=== PATIENT | female | born 1965 | race Caucasian/White ===

== ENCOUNTER → 2021-01-31 | Outpatient (CLI) | payer BC ==
--- NOTE | 2021-01-31 17:13 | Diagnostic Imaging Report ---
INDICATION: Knee pain. COMPARISON: None. FINDINGS: Multiple radiographic views of the right knee joint demonstrate no acute fracture or dislocation. No focal lytic or blastic lesion is seen. There is however apparent 4 mm calcified intra-articular loose body within the medial tibial femoral compartment. Note is also made of large suprapatellar joint effusion. No unexpected radiopaque foreign bodies are seen. IMPRESSION: 1. No evidence of acute fracture or dislocation of the right knee. 2. Large suprapatellar joint effusion. 3. Probable calcified intra-articular loose body within the medial compartment. Dictated by: Dictated on workstation # [id number]
== END ==
LOC: RAD FS 15:00
PROVIDERS: ATTEND Nurse Practitioner
DX: M25.561 Pain in right knee (principal); M25.461 Effusion, right knee
CPT/HCPCS: 73562

== ENCOUNTER 2021-02-24 22:18 | Emergency (ER) | payer BC ==
[2021-02-24] MEDS ORDERED: FAMOTIDINE 20MG/2ML IV (PEPCID) IV STA (22:23)
[2021-02-24] MEDS ORDERED: LACTATED RINGERS 1,000 ML IV STA (22:23)
--- NOTE | 2021-02-24 22:23 | ED GI ---
General Stated Complaint: NAUSEA/VOMITING History of Present Illness Date Seen by Provider: February 24, 2021 Time Seen by Provider: 22:22 Initial Comments Patient with nausea vomiting and diarrhea. Patient reports that started approximate hour right prior to arrival. She reports that it is "coming out both ends" patient reports that she had her gallbladder out on the fifth of this month at [facility] by Dr. Boland. She reports that she has had 1 prior episode similar to this about 10 days ago. She reports that they barbecued hamburgers on the grill for supper. However she is the only 1 having any symptoms in the household. Patient was significantly diaphoretic due to the vomiting and diarrhea. She has some mild abdominal tenderness from the vomiting but no actual pain. Allergies and Home Medications Allergies Coded Allergies: [place] Known Allergies (Verified Allergy, Unknown, 02/10/07) Physical Exam Vital Signs Vital Signs - First Documented 02/24/21 22:20 Temp 36.6 Pulse 77 Resp 20 B/P (MAP) 142/72 (95) Pulse Ox 99 O2 Delivery Room Air Capillary Refill : Height/Weight/BMI Height: '" Weight: lbs. oz. kg; BMI Method: Progress/Results/Core Measures Results/Orders Lab Results Laboratory Tests Test 02/24/21 22:30 02/24/21 22:59 Range/Units White Blood Count 22.1 H 4.3-11.0 10^3/uL Red Blood Count 5.32 4.35-5.85 10^6/uL Hemoglobin 16.0 11.5-16.0 G/DL Hematocrit 46 35-52 % Mean Corpuscular Volume 87 80-99 FL Mean Corpuscular Hemoglobin 30 25-34 PG Mean Corpuscular Hemoglobin Concent 35 32-36 G/DL Red Cell Distribution Width 12.8 10.0-14.5 % Platelet Count 461 H 130-400 10^3/uL Mean Platelet Volume 9.4 7.4-10.4 FL Immature Granulocyte % (Auto) 1 % Neutrophils (%) (Auto) 74 42-75 % Lymphocytes (%) (Auto) 21 12-44 % Monocytes (%) (Auto) 3 0-12 % Eosinophils (%) (Auto) 1 0-10 % Basophils (%) (Auto) 0 0-10 % Neutrophils # (Auto) 16.4 H 1.8-7.8 X 10^3 Lymphocytes # (Auto) 4.6 H 1.0-4.0 X 10^3 Monocytes # (Auto) 0.7 0.0-1.0 X 10^3 Eosinophils # (Auto) 0.2 0.0-0.3 10^3/uL Basophils # (Auto) 0.1 0.0-0.1 10^3/uL Immature Granulocyte # (Auto) 0.1 0.0-0.1 10^3/uL Neutrophils % (Manual) 81 % Lymphocytes % (Manual) 15 % Monocytes % (Manual) 4 % Toxic Granulation 4+ Sodium Level 139 135-145 MMOL/L Potassium Level 3.8 3.6-5.0 MMOL/L Chloride Level 102 98-107 MMOL/L Carbon Dioxide Level 17 L 21-32 MMOL/L Anion Gap 20 H 5-14 MMOL/L Blood Urea Nitrogen 20 H 7-18 MG/DL Creatinine 0.93 0.60-1.30 MG/DL Estimat Glomerular Filtration Rate > 60 BUN/Creatinine Ratio 22 Glucose Level 252 H 70-105 MG/DL Calcium Level 10.4 H 8.5-10.1 MG/DL Corrected Calcium 8.5-10.1 MG/DL Total Bilirubin 0.7 0.1-1.0 MG/DL Aspartate Amino Transf (AST/SGOT) 43 H 5-34 U/L Alanine Aminotransferase (ALT/SGPT) 40 0-55 U/L Alkaline Phosphatase 118 40-136 U/L Total Protein 8.9 H 6.4-8.2 GM/DL Albumin 4.9 H 3.2-4.5 GM/DL Lipase 35 8-78 U/L Smear Scan LARGE PLTS Glucometer 130 H 70-110 MG/DL My Orders Orders - JOLLY,KARYNA L DO Ondansetron Injection (Zofran Injectio (02/24/21 22:30) Lactated Ringers (Lr 1000 Ml Iv Solution (02/24/21 22:23) Famotidine Injection (Pepcid Injection) (02/24/21 22:23) Ed Iv/Invasive Line Start (02/24/21 22:23) Cbc With Automated Diff (02/24/21 22:23) Comprehensive Metabolic Panel (02/24/21 22:23) Lipase (02/24/21 22:23) Ua Culture If Indicated (02/24/21 22:23) Accucheck Stat ONCE (02/24/21 22:23) Ekg Tracing (02/24/21 22:23) Monitor-Rhythm Ecg Trace Only (02/24/21 22:23) Acute Abd Series (02/24/21 22:23) Manual Differential (02/24/21 22:30) Ct Abdomen/Pelvis W (02/24/21 23:05) Iohexol Injection (Omnipaque 350 Mg/Ml 1 (02/24/21 23:15) Received Contrast (Hold Metformin- Contr (02/24/21 23:15) Sodium Chloride Flush (Catheter Flush Sy (02/24/21 23:15) Ns (Ivpb) (Sodium Chloride 0.9% Ivpb Bag (02/24/21 23:15) Medications Given in ED Current Medications Medications Dose Ordered Sig/Elke Route Start Time Stop Time Status Last Admin Dose Admin Iohexol 100 ml ONCE ONCE IV 02/24/21 23:15 02/24/21 23:16 DC 02/24/21 23:37 100 ML Ondansetron HCl 4 mg ONCE ONCE IVP 02/24/21 22:30 02/24/21 22:31 DC 02/24/21 22:29 4 MG Sodium Chloride 10 ml NEEDED PRN IV 02/24/21 23:15 02/24/21 23:38 10 ML Sodium Chloride 100 ml ONCE ONCE IV 02/24/21 23:15 02/24/21 23:16 DC 02/24/21 23:38 80 ML Vital Signs/I&O 02/24/21 22:20 Temp 36.6 Pulse 77 Resp 20 B/P (MAP) 142/72 (95) Pulse Ox 99 O2 Delivery Room Air Progress Progress Note : Progress Note Patient felt slightly better following treatment with IV fluids, Zofran. No further episodes of vomiting or diarrhea while here in the ER. Patient's CAT scan showed a diarrheal illness with some fluid-filled small and large bowel loops. No acute findings. Discussed with patient that is likely of virus versus reaction to her recent gallbladder surgery. That she will have to run it s course. Patient has Zofran already at home. Patient is discharged home in stable condition. Patient's blood pressure was slightly elevated told her she can take her blood pressure medication tonight or she can wait till the morning. Departure Impression Primary Impression: Gastroenteritis Disposition: 01 HOME, SELF-CARE Condition: Stable Departure-Patient Inst. Referrals: JAMESON MONROE MD (PCP/Family) Primary Care Physician Patient Instructions: [id number] Add. Discharge Instructions: Clear liquid diet, advance as tolerated KARYNA JOLLY DO February 24, 2021 22:23
[2021-02-24] MEDS ORDERED: ONDANSETRON 4 MG/2 ML (SDV) Z0FRAN IVP ONE (22:30)
[2021-02-24 22:36] LABS: HEMATOCRIT 46 % (35-52); MEAN CORPUSCULAR HEMOGLOBIN 30 PG (25-34); MEAN CORPUSCULAR HGB CONC 35 G/DL (32-36); MEAN CORPUSCULAR VOLUME 87 FL (80-99); WHITE BLOOD COUNT 22.1 10^3/uL (4.3-11.0)
[2021-02-24 22:37] LABS: BASOPHILS # (AUTO) 0.1 10^3/uL (0.0-0.1); BASOPHILS % (AUTO) 0 % (0-10); EOSINOPHILS # (AUTO) 0.2 10^3/uL (0.0-0.3); EOSINOPHILS % (AUTO) 1 % (0-10); LYMPHOCYTES # (AUTO) 4.6 X 10^3 (1.0-4.0); LYMPHOCYTES % (AUTO) 21 % (12-44); MEAN PLATELET VOLUME 9.4 FL (7.4-10.4); MONOCYTES # (AUTO) 0.7 X 10^3 (0.0-1.0); MONOCYTES % (AUTO) 3 % (0-12); NEUTROPHILS # (AUTO) 16.4 X 10^3 (1.8-7.8); NEUTROPHILS % (AUTO) 74 % (42-75); PLATELET COUNT 461 10^3/uL (130-400)
[2021-02-24 22:54] LABS: BUN/CREATININE RATIO 22; CARBON DIOXIDE 17 MMOL/L (21-32); CHLORIDE 102 MMOL/L (98-107); CREATININE SERUM 0.93 MG/DL (0.60-1.30); GFR ESTIMATED > 60; LYMPHOCYTES % (MANUAL) 15 %; MONOCYTES % (MANUAL) 4 %; NEUTROPHILS % (MANUAL) 81 %; POTASSIUM 3.8 MMOL/L (3.6-5.0); SMEAR SCAN COMMENT LARGE PLTS; SODIUM 139 MMOL/L (135-145); TOXIC GRANULATION/VACUOLAZATIO 4+
[2021-02-24 22:55] LABS: ALANINE AMINOTRANSFERASE 40 U/L (0-55); ALBUMIN 4.9 GM/DL (3.2-4.5); ALKALINE PHOSPHATASE 118 U/L (40-136); BILIRUBIN,TOTAL 0.7 MG/DL (0.1-1.0); CALCIUM 10.4 MG/DL (8.5-10.1); GLUCOSE 252 MG/DL (70-105); LIPASE 35 U/L (8-78); TOTAL PROTEIN 8.9 GM/DL (6.4-8.2)
[2021-02-24] MEDS ORDERED: CATHETER FLUSH 10 ML SYR IV PRN (23:15)
[2021-02-24] MEDS ORDERED: HOLD METFORMIN - RECEIVED CONTRAST 20 ML VIAL IV SCH (23:15)
[2021-02-24] MEDS ORDERED: NS 100 ML (IVPB) BAG IV ONE (23:15)
[2021-02-24] MEDS ORDERED: IOHEXOL 350 MG/ML 100 ML (OMNIPAQUE 350) VIAL IV ONE (23:15)
[2021-02-25 00:30] VITALS: BP 166/56
--- NOTE | 2021-02-25 05:27 | Diagnostic Imaging Report ---
INDICATION: n/v/d COMPARISON: 03/29/2007 FINDINGS: Supine and upright views of the abdomen show a nondistended bowel gas pattern. No abnormal air fluid levels or free intraperitoneal air is seen. No abnormal extraosseous calcifications are seen. Bony and soft tissue structures are within normal limits. No organomegaly is identified. Accompanying upright chest shows normal heart size and pulmonary vascularity. The lungs are well aerated and clear. The mediastinum is normal in appearance. IMPRESSION: 1. No bowel obstruction or free air. 2. Normal chest. No pneumonia or pulmonary edema. Dictated by: Dictated on workstation # [id number]
--- NOTE | 2021-02-25 06:57 | Diagnostic Imaging Report ---
PROCEDURE: CT abdomen and pelvis with contrast. TECHNIQUE: Multiple contiguous axial images were obtained through the abdomen and pelvis after administration of intravenous contrast. Auto Exposure Controls were utilized during the CT exam to meet ALARA standards for radiation dose reduction. All CT scans use one or more of the following dose optimizing techniques: automated exposure control, MA and/or KvP adjustment based on patient size and exam type or iterative reconstruction. INDICATION: Abdominal pain. Recent cholecystectomy. COMPARISON: None FINDINGS: Included portions of the lung bases are clear. Small hiatal hernia is noted. CT ABDOMEN: Air-fluid levels are seen scattered throughout the large and small bowel. There is also mild generalized large and small bowel wall thickening with hyperenhancement. No focal distention is seen. There is no pneumatosis, pneumoperitoneum, nor portal venous gas. No free fluid is seen within the abdomen. Additionally, no loculated air-fluid collection is identified. Normal appendix is noted. Multiple benign-appearing bilateral renal cysts are noted. A few of these cystic appearing foci are too small to adequately characterize on this exam. No enhancing renal masses are seen. The adrenal glands, spleen, pancreas, and liver have a normal CT appearance. Patient is status post previous cholecystectomy. No abnormal mesenteric or retroperitoneal adenopathy is seen. Osseous structures show no acute abnormalities. CT PELVIS: Urinary bladder is unopacified. No calculi are seen within urinary bladder. There is no loculated fluid collection, free fluid or free air within the pelvis. No abnormal lymph nodes are identified. Osseous structures show no acute abnormalities. IMPRESSION: 1. Multiple air-fluid levels scattered throughout the large and small bowel with generalized mild small bowel and colonic wall thickening and hyperenhancement. Findings are nonspecific, but suggest infectious or inflammatory enterocolitis. 2. No evidence of obstruction. No pneumatosis, pneumoperitoneum, nor portal venous gas. 3. Patient is status post previous cholecystectomy. Not stated above, there is mild stranding within the gallbladder fossa, but no loculated air-fluid collection to suggest abscess. Dictated by: Dictated on workstation # [id number]
== END 2021-02-25 00:30 | disposition home or self-care (01) ==
LOC: EDUNIT# 22:18 → ER FS 22:21
DX: K52.9 Noninfective gastroenteritis and colitis, unspecified (principal); Z90.49 Acquired absence of other specified parts of digestive tract
CPT/HCPCS: 36415; 74022; 74177; 80053; 82947; 83690; 85007; 85027; 93005; 93041